=== PATIENT | male | born 1975 | race Caucasian/White ===

== ENCOUNTER 2023-09-24 09:08 | Inpatient (IN) ==
--- NOTE | 2023-09-24 09:51 | Emergency Department Note ---
Impression & Plan Headache, Visual changes, Diarrhea, Occipital neuralgia ED Provider Note ED Provider Note NAME: SHAYNA MADRID AGE:48 SEX: Male : 1975 ARRIVES VIA: private vehicle INFORMANT: Patient ED PROVIDER(s): Margi Robb DO CHIEF COMPLAINT: atypical headache HPI: This is a 48-year-old male presents emerged from due to concern for worsening left posterior headache. Patient was seen and evaluated here 2 weeks ago and diagnosed with Carmona's palsy. He states he was started on a steroid. He states no labs or imaging were performed at that time. He states in the interim he has had mild improvement of the left-sided facial droop although not complete resolution. He did complete a wee of prednisone during that time. He states he also went to [place] in the interim and upon return developed diarrhea. No blood with bowel movements. He states 1 week ago he had a syncopal event at home in the bathroom. He states prior to the onset of the left facial droop and diagnosis of Carmona's he had began having atypical left-sided headaches. Patient does have a history of migraines which she describes as a pain that starts in the neck and comes up over then to his forehead. He states he does typically use OTC meds but also has sumatriptan for refractory symptoms. He states this pain feels different as sharp, lancinating, and he is difficulty finding a comfortable position. He states that has disrupted his sleep additionally. He denies fevers or chills. He denies any extremity weakness or paresthesias. He has noticed intermittent changes to vision including light sensitivity and noise sensitivity. No nausea or vomiting. PAST MEDICAL HISTORY:See Below PAST SURGICAL HISTORY:See Below FAMILY HISTORY:See Below SOCIAL HISTORY:See Below HOME MEDICATIONS:See Below ALLERGIES:See Below VITALS:See Below PHYSICAL EXAMINATION: GENERAL: alert, well appearing, well nourished, no distress, non-toxic EYE EXAM: normal conjunctiva, PERRL and EOM's grossly intact EARS: TMs clear bilaterally without erythema or effusion OROPHARYNX: no exudate, no erythema, lips, buccal mucosa, and tongue normal and mucous membranes are moist NECK: supple, no nuchal rigidity, no adenopathy, non-tender, pain with palpation at left lateral occipital area/nuchal ridge, FROM LUNGS: Clear to auscultation. Normal chest wall mechanics, no w/r/r HEART: no murmurs, S1 normal and S2 normal ABDOMEN: abdomen soft, non-tender, normo-active bowel sounds, no masses, no rebound or guarding. BACK: Back is symmetrical on inspection and there is no deformity, no midline tenderness, no CVA tenderness. SKIN: no rashes, petechiae, orbruising UPPER EXTREMITIES: upper extremities are grossly normal. FROM, nml pulses b/l. LOWER EXTREMITIES: No pitting edema. FROM, nml pulses b/l. NEURO EXAM: Normal sensorium, cranial nerves II-XII grossly intact, normal speech, no facial droop,nogross weakness of arms, no gross weakness of legs. Gross sensation intact. Negative pronator drift. Normal finger-nose. Normal [id number]. No ataxia. Vital Signs: reviewed and remarkable Differential Diagnosis: headache, tension headache, cluster headache, migraine, subarachnoid hemorrhage, meningitis, mass, central venous thrombus, concussion, trauma and epidural/subdural hemorrhage. MEDICAL DECISION MAKING: Patient has no contributory family history. Patient was first seen and observation began at 0815 and was necessary in order to evaluate symptoms and rule out acute intracranial pathology such as stroke or dissection. Upon re- evaluation, 9 hours of observation revealed that the patient would require admission. Discharge from observation at 1813. This is a 48-year-old male presents with 2 weeks of left posterior headache different from prior tension headaches and migraine headaches. Recent diagnosis of Carmona's palsy which does seem to be improving. He was afebrile and hemodynamically stable. All he does still have facial droop and slight lid lag, he otherwise had a nonfocal neuroexam. Labs drawn and sent, IV established, patient sent for CT/CTA, and was monitored on telemetry. He was given several liters of IV fluids due to concern for coming dehydration and recent diarrhea after travel to [place]. Patient given multiple medications over the course of many hours including IV Tylenol, IV Toradol, IV magnesium, gabapentin, Robaxin, IV Pepcid, IV Zofran, and IV Depacon. Despite medications, patient with mild decrease in frequency however no improvement in severity of symptoms and concern to go home and sleep. We discussed options for continued treatment and discharge versus continued treatment as an inpatient. After time spent in discussion with he and his significant other bedside, they feel uncomfortable going home at this time due to persistent pain. Case discussed with the hospitalist team for additional evaluation and management. Consultation(s): 1539: Discussed with Dr. Valdivia, neurology. Discussed recent history, presentation, medications thus far, and evaluation in the ER. Additional recommendations for further medications made. 1812: Discussed with Dr. Pringle, [place] hospitalist team, for additional evaluation. ER Treatment Provided: See below Diagnostics Interpreted By Me: -Cardiac Monitoring: An order was placed for continuous cardiac monitoring. The monitor shows a rate of 98 with normal sinus rhythm. -Laboratory studies: As stated above and show below. -Imaging studies: CT head: no ICH Triage Nursing Note Reviewed Prior/Outside Records Reviewed Past Med/Surg History Problem List Occipital neuralgia (Acute) Diarrhea (Acute) Visual changes (Acute) Headache (Acute) Carmona's palsy (Acute) Encounter for pre-operative examination Degeneration of cervical intervertebral disc Screening for colon cancer Current use of proton pump inhibitor Sebaceous cyst Abscess of skin of left shoulder Filiform wart Skin lesion Hyperlipidemia (Acute) Rib pain on left side Health care maintenance (Acute) Migraine Cervical radiculopathy Anxiety HTN (hypertension) Medical History History of hepatitis A ~20 yrs ago History of COVID-19 2020- no hosp; resolved Sleep apnea no device Surgical History Hx of sinus surgery septal deviation S/P inguinal hernia repair S/P LASIK surgery Family History Family/Other Anxiety Depression Father Hypertension Cancer Denies family history of Ovarian cancer Prostate cancer Myocardial infarction Breast cancer Lung cancer Colorectal cancer Social History Smoking Status: Former smoker Tobacco Type: Cigarettes Age Quit Using Tobacco: 38; Second Hand Exposure: No; Do You Dip or Chew Tobacco: No; Hx Alcohol Use: Yes Alcohol type: beer and hard liquor Alcohol Intake Frequency Comment: On weekends Hx Substance Use: No Preferred Language: Greenlandic Communication Ability: Effective Visual Impairment: No Limitations Hearing Ability: Normal Consultants Intern Required: No Beliefs That Will Affect Care: None marital status: Current Living Situation: Spouse current occupational status: employed current occupation: law enforcement How many Children do You have: 3 Feels Safe at Home: Yes during the past year weight has: remained stable Seatbelt Use: always Assistive Devices: None Allergies Allergies Allergy/AdvReac Type Severity Reaction Status Date / Time prochlorperazine AdvReac Severe ANXIETY Verified 09/24/23 08:14 Home Meds Home Medications Medication Instructions Recorded Confirmed omeprazole 20 mg capsule,delayed 20 mg PO DAILY 02/26/23 09/24/23 release cyclobenzaprine 10 mg tablet 10 mg PO HS PRN neck pain 09/24/23 09/24/23 diltiazem HCl 240 mg 240 mg PO DAILY 09/24/23 09/24/23 capsule,extended release 24 hr, controlled escitalopram oxalate 10 mg tablet 15 mg PO DAILY 09/24/23 09/24/23 nystatin 100,000 unit/gram topical 1 applic topical BID PRN Other 09/24/23 09/24/23 cream Previous Rx's Medication Instructions Recorded sumatriptan succinate 100 mg 100 mg PO Q2H PRN migraine 12/28/22 tablet (Imitrex) headache #10 tabs valacyclovir 500 mg tablet 500 mg PO DAILY PRN history of 09/14/23 herpes genitalis #30 tabs telmisartan 80 mg tablet 80 mg PO DAILY #30 tabs 09/17/23 gabapentin 300 mg capsule 300 mg PO BID #60 caps 09/25/23 Results & Data (ED) Vital Signs Vital Signs - 24 hr 09/24/23 19:41 09/24/23 19:42 09/24/23 19:51 Pulse Rate 106 H 101 H Pulse Rate from SpO2 Sensor 107 H 101 H Respiratory Rate 20 17 Blood Pressure 161/85 H Blood Pressure Mean 127 Pulse Oximetry 100 99 Oxygen Delivery Method Room Air Room Air 09/24/23 20:01 09/24/23 20:27 09/24/23 20:30 Pulse Rate 105 H 103 H Pulse Rate from SpO2 Sensor 107 H 101 H Respiratory Rate 21 16 Blood Pressure 152/85 H Blood Pressure Mean 107 Pulse Oximetry 100 100 Oxygen Delivery Method Room Air Room Air 09/24/23 20:30 09/24/23 20:30 Pulse Rate Pulse Rate from SpO2 Sensor Respiratory Rate Blood Pressure 137/94 137/94 Blood Pressure Mean 101 101 Pulse Oximetry Oxygen Delivery Method Laboratory Data 09/25/23 05:23 09/25/23 05:23 Lab Results 09/24/23 Range/Units 10:27 WBC 19.80 H (4.8-10.8) K/ul RBC 5.50 (4.70-6.10) M/uL Hgb 17.0 (14.0-18.0) g/dl Hct 49.9 (42.0-52.0) % MCV 90.7 (80.0-100.0) fL MCH 30.9 (25.0-34.0) pg MCHC 34.1 (32.0-36.0) g/dL RDW Std Deviation 46.4 H (36.4-46.3) fL RDW Coeff of Anamika 13.9 (11.5-14.5) % Plt Count 217 (130-400) K/uL MPV 10.1 (9.4-12.4) fL Immature Gran % (Auto) 0.4 % Neut % (Auto) 91.4 % Lymph % (Auto) 3.1 % Lamb % (Auto) 3.9 % Eos % (Auto) 1.0 % Baso % (Auto) 0.2 % Neut # (Auto) 18.11 H (1.40-6.50) K/uL Lymph # (Auto) 0.61 L (1.20-3.40) K/uL Lamb # (Auto) 0.77 H (0.11-0.59) K/uL Eos # (Auto) 0.19 (0.00-0.50) K/uL Baso # (Auto) 0.04 (0.00-0.20) K/uL Immature Gran # (Auto) 0.08 (0.01-0.20) K/uL Sodium 140 (136-145) mmol/L Potassium 4.1 (3.5-5.1) mmol/L Chloride 104 (98-107) mmol/L Carbon Dioxide 26 (21-32) mmol/L Anion Gap 10 (3-11) BUN 19 (6-23) mg/dl Creatinine 0.93 (0.6-1.4) mg/dl Est Cr Clr Drug Dosing 113.5 ml/min Est GFR ( Amer) 111.3 ml/min Est GFR (Non-Af Amer) 96.1 ml/min BUN/Creatinine Ratio 20.4 H (10-20) Glucose 101 H (70-99(Fasting)) mg/dl Calcium 9.4 (8.6-10.3) mg/dl Magnesium 1.9 (1.7-2.4) mg/dl Total Bilirubin 1.4 H (0.2-1.0) mg/dl AST 17 (13-39) U/L ALT 15 (7-52) U/L Alkaline Phosphatase 56 (34-104) U/L Total Protein 7.3 (6.0-8.3) gm/dl Albumin 4.4 (3.4-5.0) gm/dl Globulin 2.9 (2.5-4.0) gm/dl Albumin/Globulin Ratio 1.5 (0.9-2) Lipase 11 (11-82) U/L Procalcitonin 0.11 (0-0.5) ng/ml TSH 0.734 (0.300-4.500) uIu/ml Anaplasma Smear See Comment Babesia Smear See Comment Lyme Disease Screen Negative (Negative) Administered Medications Discontinued Medications Diltiazem HCl (Diltiazem Hcl 240 Mg Capcr) 240 mg PO DAILY ERIKA Stop: 10/25/23 08:59 Last Admin: 09/25/23 08:19 Dose: 240 mg Documented By: WINDY Diphenhydramine HCl (Diphenhydramine 50 Mg/Ml Vial) 25 mg IV NOW STA Stop: 09/24/23 23:24 Last Admin: 09/24/23 23:57 Dose: 25 mg Documented By: NEHEMIAS Enoxaparin Sodium (Enoxaparin Inj 40 Mg/0.4 Ml Syr) 40 mg SQ Q24H ERIKA Stop: 10/25/23 05:59 Last Admin: 09/25/23 06:08 Dose: 40 mg Documented By: SARAH Escitalopram Oxalate (Escitalopram Oxalate 10 Mg Tab) 15 mg PO DAILY ERIKA Stop: 10/25/23 08:59 Last Admin: 09/25/23 08:19 Dose: 15 mg Documented By: WINDY Gabapentin (Gabapentin 100 Mg Cap) 100 mg PO NOW STA Stop: 09/24/23 10:48 Last Admin: 09/24/23 11:07 Dose: 100 mg Documented By: KYUNG Gabapentin (Gabapentin 100 Mg Cap) 200 mg PO NOW STA Stop: 09/24/23 15:52 Last Admin: 09/24/23 16:57 Dose: 200 mg Documented By: DIANNA Gabapentin (Gabapentin 100 Mg Cap) 100 mg PO BID ERIKA Stop: 10/24/23 23:22 Last Admin: 09/25/23 08:20 Dose: 100 mg Documented By: Admin: 09/24/23 23:57 Dose: 100 mg Documented By: NEHEMIAS Gabapentin (Gabapentin 100 Mg Cap) 200 mg PO ONE ONE Stop: 09/25/23 10:46 Last Admin: 09/25/23 11:05 Dose: 200 mg Documented By: WINDY Gadobutrol (Gadobutrol 65ml Vial) 10 ml IV ONCE ONE Stop: 09/25/23 13:26 Last Admin: 09/25/23 13:25 Dose: 10 ml Documented By: GERALDINE Sodium Chloride (Nss) 1,000 mls @ 999 mls/hr IV .Q1H1M ONE Stop: 09/24/23 10:43 Last Infusion: 09/24/23 11:34 Dose: Infused Documented By: Admin: 09/24/23 10:29 Dose: 999 mls/hr Documented By: ALS Acetaminophen (Ofirmev) 1,000 mg in 100 mls @ 400 mls/hr IV NOW STA Stop: 09/24/23 09:57 Last Infusion: 09/24/23 10:36 Dose: Infused Documented By: Admin: 09/24/23 10:21 Dose: 400 mls/hr Documented By: ALS Famotidine (Pepcid 20mg Iv Push) 20 mg in 5 mls @ 2.5 mls/min IV NOW STA Stop: 09/24/23 09:44 Last Admin: 09/24/23 10:29 Dose: 2.5 mls/min Documented By: ALS Sodium Chloride (Nss) 1,000 mls @ 999 mls/hr IV .Q1H1M ONE Stop: 09/24/23 11:46 Last Infusion: 09/24/23 12:19 Dose: Infused Documented By: Admin: 09/24/23 11:08 Dose: 999 mls/hr Documented By: ALS Magnesium Sulfate/Dextrose (Magnesium Sulfate / D5w) 1 gm in 100 mls @ 100 mls/hr IV NOW STA Stop: 09/24/23 11:46 Last Infusion: 09/24/23 12:08 Dose: Infused Documented By: Admin: 09/24/23 11:07 Dose: 100 mls/hr Documented By: KYUNG Valproic Acid 500 mg/ Dextrose 55 mls @ 55 mls/hr IV NOW STA Stop: 09/24/23 16:50 Last Infusion: 09/24/23 18:01 Dose: Infused Documented By: Admin: 09/24/23 16:57 Dose: 55 mls/hr Documented By: DIANNA Lactated Ringer's (Lr) 1,000 mls @ 80 mls/hr IV .[id number] ERIKA Stop: 10/24/23 22:59 Last Infusion: 09/25/23 12:03 Dose: Infused Documented By: Admin: 09/25/23 00:45 Dose: 80 mls/hr Documented By: Infusion: 09/25/23 00:45 Dose: Infused Documented By: Admin: 09/24/23 23:13 Dose: 80 mls/hr Documented By: NEHEMIAS Lorazepam 1 mg/ Syringe 1 mls @ 2 mls/min IV Q30M PRN PRN Reason: MRI: Anxiety/Agitation Stop: 10/25/23 11:04 Last Admin: 09/25/23 11:55 Dose: 2 mls/min Documented By: WINDY Ioversol (Optiray 320 125ml) 112 ml IV ONCE ONE Stop: 09/24/23 11:16 Last Admin: 09/24/23 11:15 Dose: 112 ml Documented By: VERÓNICA Ketorolac Tromethamine (Ketorolac Tromethamine 15 Mg/Ml Vial) 10 mg IV NOW ONE Stop: 09/24/23 12:36 Last Admin: 09/24/23 12:39 Dose: 10 mg Documented By: ROZ Ketorolac Tromethamine (Ketorolac Tromethamine 15 Mg/Ml Vial) 10 mg IV NOW ONE Stop: 09/24/23 17:34 Last Admin: 09/24/23 17:40 Dose: 10 mg Documented By: PAULY Ketorolac Tromethamine (Ketorolac Tromethamine 10 Mg Tablet) 10 mg PO NOW STA Stop: 09/24/23 21:23 Last Admin: 09/24/23 21:29 Dose: 10 mg Documented By: DIANNA Losartan Potassium (Losartan Potassium 50 Mg Tab) 100 mg PO DAILY ERIKA Stop: 10/25/23 08:59 Last Admin: 09/25/23 08:19 Dose: 100 mg Documented By: WINDY Methocarbamol (Methocarbamol 500 Mg Tablet) 500 mg PO NOW STA Stop: 09/24/23 13:50 Last Admin: 09/24/23 14:08 Dose: 500 mg Documented By: SUZANNA Methocarbamol (Methocarbamol 500 Mg Tablet) 250 mg PO NOW STA Stop: 09/24/23 15:54 Last Admin: 09/24/23 16:56 Dose: 250 mg Documented By: DIANNA Ondansetron HCl (Ondansetron Inj 2 Mg/Ml 2 Ml Vial) 4 mg IV NOW STA Stop: 09/24/23 09:44 Last Admin: 09/24/23 10:21 Dose: 4 mg Documented By: KYUNG Oxycodone HCl (Oxycodone Hcl Ir 5 Mg Tab (Immediate Release)) 5 mg PO HS PRN PRN Reason: Pain Stop: 10/08/23 23:22 Last Admin: 09/25/23 05:49 Dose: 5 mg Documented By: SARAH Pantoprazole Sodium (Pantoprazole 40 Mg Tab) 40 mg PO NOW STA Stop: 09/24/23 22:13 Last Admin: 09/24/23 23:13 Dose: 40 mg Documented By: NEHEMIAS Pantoprazole Sodium (Pantoprazole 40 Mg Tab) 40 mg PO DAILY ERIKA Stop: 10/25/23 08:59 Last Admin: 09/25/23 08:20 Dose: 40 mg Documented By: WINDY Sumatriptan Succinate (Sumatriptan Succinate 100 Mg Tab) 100 mg PO Q2H PRN PRN Reason: migraine headache Stop: 10/24/23 23:22 Last Admin: 09/25/23 14:34 Dose: 100 mg Documented By: WINDY Imaging Data Radiologist's Impression: Head CT 09/24/23 09:[address] DOSE: HISTORY: left posterior headache, nausea, vision change TECHNIQUE: Multiaxial CT images of the head were performed without the use of intravenous contrast. Automated exposure control was utilized for this study. A dose lowering technique was utilized adhering to the principles of ALARA. Comparison: None. Findings: Partially visualized small retention cyst within the right maxillary sinus. The remaining paranasal sinuses and mastoid air cells are clear. The calvarium and skull base are intact. The ventricles and sulci are within normal limits. There is no mass, hematoma, midline shift, or acute infarct. 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 Impression: No acute intracranial abnormality. ACT 112: Negative or not required by law. Electronically signed by: Renny Wyatt M.D. 09/24/2023 11:37 AM Head CTA 09/24/23 09:43 CT angio head w con CLINICAL HISTORY: 48 years-old Male with left posterior lowe, vision change, nausea. Acute headache COMPARISON STUDY: Head CT of same day TECHNIQUE: Unenhanced following the IV administration of 112 cc of Optiray, CT angiogram of the brain was performed from the skull base to the vertex. Images are reviewed in the axial, sagittal, and coronal planes. 3-D MIPS images are created and assessed. IV contrast was administered without complication. All measurements were obtained according to NASCET criteria. A dose lowering technique was utilized adhering to the principles of ALARA. FINDINGS: CT ANGIOGRAM OF THE BRAIN: The imaged bilateral internal carotid arteries are patent. The bilateral anterior and middle cerebral arteries are also patent. The vertebrobasilar system and posterior cerebral arteries are widely patent. There is no aneurysm, high-grade stenosis, or proximal branch occlusion identified. Dural sinuses appear patent. Polypoid mucosal thickening of the right maxillary sinus incidentally noted. Periapical cystic changes noted involving a right maxillary molar, partially imaged. IMPRESSION: Unremarkable CTA of the head. ACT 112: Negative or not required by law. The above report was generated using voice recognition software. It may contain grammatical, syntax or spelling errors. Electronically signed by: Jabier Cohen M.D. 09/24/2023 11:50 AM Neck CTA 09/24/23 09:43 CT ANGIOGRAM OF THE NECK CLINICAL HISTORY: Headache. Nausea. Visual changes. COMPARISON STUDY: No priors. TECHNIQUE: Following the IV administration of 112 of Optiray 320, CT angiogram of the neck was performed from the aortic arch to the skull base. Images are reviewed in the axial, sagittal, and coronal planes. 3-D MIPS images are created and assessed. IV contrast was administered without complication. All measurements were calculated based on NASCET criteria. A dose lowering technique was utilized adhering to the principles of ALARA. CT DOSE: 1222.25 mGy.cm FINDINGS: Thoracic aorta: Visualized portions of the thoracic aorta are normal in caliber. The aortic arch demonstrates standard 3-vessel anatomy. Right carotid arterial system: The right common carotid artery is widely patent, as are the right internal and external carotid arteries. Left carotid arterial system: The left common carotid artery is widely patent, as are the left internal and external carotid arteries. Vertebral arteries: Widely patent bilaterally and codominant. Subclavian arteries: Widely patent bilaterally. Intracranial vasculature: The visualized intracranial vessels at the skull base are patent. Jugular veins: Patent bilaterally. Brain parenchyma: The visualized brain parenchyma the skull base is within normal limits. Lung apices: Partially visualized upper lobe lung parenchyma appears clear. Soft tissues: The visualized pharyngeal soft tissues are normal in appearance noting angiographic phase technique. The oropharyngeal airway appears widely patent. The salivary and thyroid glands are normal in appearance. No cervical lymphadenopathy is seen. Skeletal structures: The visualized calvarium at the skull base appears intact. The imaged cervical spine appears intact. There is marked disc space narrowing, endplate sclerosis, and a posterior discussed by complex at C5-C6. Sinuses and mastoids: There is a large periapical lucency involving the 2 most posterior right maxillary molars. This may involve the right maxillary antrum. There is trace mucosal thickening and a 2.1 cm retention cyst in the right maxillary antrum. The mastoid air cells are well pneumatized. IMPRESSION: Unremarkable CT angiogram of the neck. ACT 112: Negative or not required by law. Electronically signed by: Juan Antonio Nicolas M.D. 09/24/2023 11:36 AM Discharge Plan Visit Data Chief Complaint: Head Pain Stated Complaint: PAIN IN BACK OF HEAD WORSE/CARMONA'S PALSY WORSE ED Provider: Margi Robb Discharge Problem: Headache, Visual changes, Diarrhea, Occipital neuralgia Patient Disposition: Home - Self-Care Condition: Good Discharge Instructions Interventions: ED Discharge Assessment Last Done: 09/24/23 23:24
[2023-09-24] MEDS: ACETAMINOPHEN 1,000 MG/100 ML VIAL IV STA (10:21)
[2023-09-24] MEDS: ONDANSETRON INJ 2 MG/ML 2 ML VIAL IV STA (10:21)
[2023-09-24] MEDS: FAMOTIDINE 20MG IV PUSH 20 MG/5 ML SYR IV STA (10:29)
[2023-09-24] MEDS: SODIUM CHLORIDE 0.9% 1,000 ML IV ONE ×2 (10:29→11:08)
[2023-09-24 10:44] LABS: Hematocrit (blood only) 49.9 % (42.0-52.0); Mean Corpuscular Hemoglobin 30.9 pg (25.0-34.0); Mean Corpuscular Hgb Conc 34.1 g/dL (32.0-36.0); Mean Corpuscular Volume 90.7 fL (80.0-100.0); Mean Platelet Volume 10.1 fL (9.4-12.4); Platelet Count 217 K/uL (130-400); RDW Coefficient of Variation 13.9 % (11.5-14.5); RDW Standard Deviation 46.4 fL (36.4-46.3)
[2023-09-24 10:59] LABS: Albumin Level 4.4 gm/dl (3.4-5.0); BUN Creatinine Ratio 20.4 (10-20); Calcium 9.4 mg/dl (8.6-10.3); Creatinine Clr Calc Pharmacy 113.5 ml/min; Est GFR (African American) 111.3 ml/min; Est GFR (Non-African American) 96.1 ml/min; Magnesium 1.9 mg/dl (1.7-2.4); Potassium 4.1 mmol/L (3.5-5.1)
[2023-09-24] MEDS: MAGNESIUM SULFATE / D5W 1 GM/100 ML BAG IV STA (11:07)
[2023-09-24] MEDS: GABAPENTIN 100 MG CAP PO STA ×2 (11:07→16:57)
[2023-09-24 11:12] LABS: Albumin Globulin Ratio 1.5 (0.9-2); Basophils # (auto) 0.04 K/uL (0.00-0.20); Basophils % (auto) 0.2 %; Bilirubin,Total 1.4 mg/dl (0.2-1.0); Eosinophils # (auto) 0.19 K/uL (0.00-0.50); Globulin 2.9 gm/dl (2.5-4.0); Immature Granulocytes # (auto) 0.08 K/uL (0.01-0.20); Immature Granulocytes % (auto) 0.4 %; Lymphocytes # (auto) 0.61 K/uL (1.20-3.40); Lymphocytes % (auto) 3.1 %; Monocytes # (auto) 0.77 K/uL (0.11-0.59); Monocytes % (auto) 3.9 %; Neutrophils # (auto) 18.11 K/uL (1.40-6.50); Neutrophils % (auto) 91.4 %; Total Protein 7.3 gm/dl (6.0-8.3)
[2023-09-24 11:13] LABS: Thyroid Stimulating Hormone 0.734 uIu/ml (0.300-4.500)
[2023-09-24] MEDS: OPTIRAY 320 125ml IV ONE (11:15)
--- NOTE | 2023-09-24 11:38 | CT Scan Report ---
CT ANGIOGRAM OF THE NECK CLINICAL HISTORY: Headache. Nausea. Visual changes. COMPARISON STUDY: No priors. TECHNIQUE: Following the IV administration of 112 of Optiray 320, CT angiogram of the neck was perfor med from the aortic arch to the skull base. Images are reviewed in the axial, sagittal, and coronal p lanes. 3-D MIPS images are created and assessed. IV contrast was administered without complication. A ll measurements were calculated based on NASCET criteria. A dose lowering technique was utilized adh ering to the principles of ALARA. CT DOSE: 1222.25 mGy.cm FINDINGS: Thoracic aorta: Visualized portions of the thoracic aorta are normal in caliber. The aortic arch demo nstrates standard 3-vessel anatomy. Right carotid arterial system: The right common carotid artery is widely patent, as are the right int ernal and external carotid arteries. Left carotid arterial system: The left common carotid artery is widely patent, as are the left leadership program internship al and external carotid arteries. Vertebral arteries: Widely patent bilaterally and codominant. Subclavian arteries: Widely patent bilaterally. Intracranial vasculature: The visualized intracranial vessels at the skull base are patent. Jugular veins: Patent bilaterally. Brain parenchyma: The visualized brain parenchyma the skull base is within normal limits. Lung apices: Partially visualized upper lobe lung parenchyma appears clear. Soft tissues: The visualized pharyngeal soft tissues are normal in appearance noting angiographic pha se technique. The oropharyngeal airway appears widely patent. The salivary and thyroid glands are nor mal in appearance. No cervical lymphadenopathy is seen. Skeletal structures: The visualized calvarium at the skull base appears intact. The imaged cervical s pine appears intact. There is marked disc space narrowing, endplate sclerosis, and a posterior discus sed by complex at C5-C6. Sinuses and mastoids: There is a large periapical lucency involving the 2 most posterior right maxill deepak molars. This may involve the right maxillary antrum. There is trace mucosal thickening and a 2.1 cm retention cyst in the right maxillary antrum. The mastoid air cells are well pneumatized. IMPRESSION: Unremarkable CT angiogram of the neck. ACT 112: Negative or not required by law. Electronically signed by: Juan Antonio Nicolas M.D. 09/24/2023 11:36 AM
--- NOTE | 2023-09-24 11:38 | CT Scan Report ---
HEAD CT NONCONTRAST CT DOSE: HISTORY: left posterior headache, nausea, vision change TECHNIQUE: Multiaxial CT images of the head were performed without the use of intravenous contrast. A utomated exposure control was utilized for this study. A dose lowering technique was utilized adheri ng to the principles of ALARA. Comparison: None. Findings: Partially visualized small retention cyst within the right maxillary sinus. The remaining p aranasal sinuses and mastoid air cells are clear. The calvarium and skull base are intact. The ventri cles and sulci are within normal limits. There is no mass, hematoma, midline shift, or acute infarct. 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 Impression: No acute intracranial abnormality. ACT 112: Negative or not required by law. Electronically signed by: Renny Wyatt M.D. 09/24/2023 11:37 AM
--- NOTE | 2023-09-24 11:52 | CT Scan Report ---
CT angio head w con CLINICAL HISTORY: 48 years-old Male with left posterior lowe, vision change, nausea. Acute headache COMPARISON STUDY: Head CT of same day TECHNIQUE: Unenhanced following the IV administration of 112 cc of Optiray, CT angiogram of the brain was performed from the skull base to the vertex. Images are reviewed in the axial, sagittal, and cor onal planes. 3-D MIPS images are created and assessed. IV contrast was administered without complicat ion. All measurements were obtained according to NASCET criteria. A dose lowering technique was utili zed adhering to the principles of ALARA. FINDINGS: CT ANGIOGRAM OF THE BRAIN: The imaged bilateral internal carotid arteries are patent. The bilateral anterior and middle cerebral arteries are also patent. The vertebrobasilar system and posterior cerebral arteries are widely barroso nt. There is no aneurysm, high-grade stenosis, or proximal branch occlusion identified. Dural sinuses appear patent. Polypoid mucosal thickening of the right maxillary sinus incidentally noted. Periapic al cystic changes noted involving a right maxillary molar, partially imaged. IMPRESSION: Unremarkable CTA of the head. ACT 112: Negative or not required by law. The above report was generated using voice recognition software. It may contain grammatical, syntax o r spelling errors. Electronically signed by: Jabier Cohen M.D. 09/24/2023 11:50 AM
[2023-09-24] MEDS: KETOROLAC TROMETHAMINE 15 MG/ML VIAL IV ONE ×2 (12:39→17:40)
[2023-09-24] MEDS: METHOCARBAMOL 500 MG TABLET PO STA ×2 (14:08→16:56)
[2023-09-24] MEDS: VALPROATE SOD 500 MG in DEXTROSE 5% 50 ML IV STA (16:57)
--- NOTE | 2023-09-24 18:30 | History & Physical Report ---
Date of Service September 24, 2023 Assessment & Plan (1) Occipital neuralgia: (2) Migraine: (3) Carmona's palsy: (4) Cervical radiculopathy: (5) Degeneration of cervical intervertebral disc: (6) Diarrhea: (7) HTN (hypertension): Plan Patient is a 48-year-old male w/ PMHx of migraines, cervical radiculopathy/degeneration of cerv intervertebral disc, recent Carmona's palsy Dx (still resolving), new onset mild diarrhea, HTN, acid reflux, genital herpes, who presented due to concern for worsening left posterior headache of 2-wk Hx (2 days prior to Carmona's palsy Dx). 1) Left occipital neuralgia - 2 wk history, worsening symptoms - Oxycodone, 5 mg, PO, QHS, PRN - valproic acid, 500 mg, IV, QAM and MgSO4, 1 g, IV, QAM for occipital neuralgia - discontinued Toradol, 10 mg, IV, q6hrs, PRN for pain due to potential infectious etiology - manage with Zofran and diphenhydramine, consider MgSO4 and/or 2nd dose of valproic acid in AM - holding off on pain-meds w/ anti-pyretic component to see pt spikes fever - Neurology consulted, appreciate recommendations (consideration of occipital nerve block?) 2) Migraine/Hx of migraines - Hx of migraines --> no prophylaxis, sumatriptan for breakthrough migraines; sumatriptan - given Toradol, magnesium sulfate, valproic acid, Zofran in ED 3) Carmona's palsy, resolving - Dx of Carmona's palsy during last ED admission (09/11/23), prednisone, 60 mg, PO, daily, 7-day course - residual left ptosis, left facial droop, left facial muscle involvement - Lyme panel negative 4) Cervical radiculopathy/degeneration of cervical intervertebral disc - CT-Head: Partially visualized small retention cyst within the right maxillary sinus. There is no mass, hematoma, midline shift, or acute infarct--no signs of acute abnormality. 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 - CTA-head, neck: Unremarkable CT-Head. The imaged cervical spine appears intact. There is marked disc space narrowing, endplate sclerosis, and a "posterior discussed by complex" at C5-C6. 5) Diarrhea - mild, onset the day of admission; and second couple who traveled also w/ diarrhea ; all traveled to , returned on September 21 - monitor, daily BMP - PCR stool panel ordered 6) Leukocytosis - WBC, 19.8 (0.4% immature granulocytes) in context of recent 7 day course of prednisone - temp, 37.9 after Toradol and Tylenol --> potential fever? (holding Tylenol now) - met SIRS criteria: HR, 111; WBC, 19.8 --> blood cultures ordered due to diarr heal symptoms + SIRS criteria - no respiratory, urinary, cardiac Sx; no wounds; only 0.4% immature granulocytes argues against infectious cause - monitor w/ daily CBC w/ diff 6) HTN - continue telmisartan, diltiazem Code status: Full Disposition: Med-Surg DVT Prophylaxis: Lovenox, 40 mg, SQ, daily FENGI: Regular diet, no maintenance fluids History of Present Illness Chief Complaint: left occipital pain nausea, dizziness, mild diarrhea Primary Care Provider: Tien Wheeler MD This is a 48-year-old male presents emerged from due to concern for worsening left posterior headache. Patient was seen, evaluated here 2 weeks ago, diag nosed with Carmona's palsy, received 7-day course of methylprednisolone. He states no labs or imaging were performed at that time. He's had mild improvement of the left-sided facial droop since finishing steroid course. He states he also went to [place], got back September 21, had a few episodes of diarrhea this morning, starting at 3 am, w/o blood. He states 1 week ago he had a syncopal event at home in the bathroom. He states prior to the onset of the left facial droop and diagnosis of Carmona's he had began having atypical left-sided headaches, consisting of dull-sided left pain with intermittent sharp stabbing pain at most every 45 sec. Patient does have a history of migraines which she describes as a pain that starts in the neck and comes up over then to his forehead. He states he does typically use OTC meds, has sumatriptan for refractory symptoms, but has not used it for months; states some gym exercises have decreased migraine frequency. He states this pain feels different as sharp, lancinating, and he is difficulty finding a comfortable position, and has disrupted his sleep additionally. He denies fevers or chills. He denies any extremity weakness or paresthesias. He has noticed light sensitivity and noise sensitivity but no vision changes--i.e. no blurriness, double vision. Patient has felt nauseous but has not vomited. Allergies Allergy/AdvReac Type Severity Reaction Status Date / Time prochlorperazine AdvReac Severe ANXIETY Verified 09/24/23 08:14 Home Medications Medication Instructions Recorded Confirmed Type sumatriptan succinate 100 mg 100 mg PO Q2H PRN migraine 12/28/22 09/24/23 Rx tablet (Imitrex) headache #10 tabs omeprazole 20 mg capsule,delayed 20 mg PO DAILY 02/26/23 09/24/23 History release valacyclovir 500 mg tablet 500 mg PO DAILY PRN history of 09/14/23 09/24/23 Rx herpes genitalis #30 tabs telmisartan 80 mg tablet 80 mg PO DAILY #30 tabs 09/17/23 09/24/23 Rx cyclobenzaprine 10 mg tablet 10 mg PO HS PRN neck pain 09/24/23 09/24/23 History diltiazem HCl 240 mg 240 mg PO DAILY 09/24/23 09/24/23 History capsule,extended release 24 hr, controlled escitalopram oxalate 10 mg tablet 15 mg PO DAILY 09/24/23 09/24/23 History nystatin 100,000 unit/gram topical 1 applic topical BID PRN Other 09/24/23 09/24/23 History cream Past Med/Surg History Problem List (Updated 09/24/23 @ 18:15 by Margi Robb DO) Occipital neuralgia (Acute) Diarrhea (Acute) Visual changes (Acute) Headache (Acute) Carmona's palsy (Acute) Encounter for pre-operative examination Degeneration of cervical intervertebral disc Screening for colon cancer Current use of proton pump inhibitor Sebaceous cyst Abscess of skin of left shoulder Filiform wart Skin lesion Hyperlipidemia (Acute) Rib pain on left side Health care maintenance (Acute) Migraine Cervical radiculopathy Anxiety HTN (hypertension) Medical History History of hepatitis A ~20 yrs ago History of COVID-19 2020- no hosp; resolved Sleep apnea no device Surgical History Hx of sinus surgery septal deviation S/P inguinal hernia repair S/P LASIK surgery Family History Family/Other Anxiety Depression Father Hypertension Cancer Denies family history of Ovarian cancer Prostate cancer Myocardial infarction Breast cancer Lung cancer Colorectal cancer Social History Smoking Status: Current every day smoker Tobacco Type: Cigarettes Second Hand Exposure: No; Do You Dip or Chew Tobacco: No; Hx Alcohol Use: Yes Alcohol type: beer and hard liquor Hx Substance Use: No Preferred Language: Tristanian Communication Ability: Effective Visual Impairment: No Limitations Hearing Ability: Normal Social Service Worker Required: No Beliefs That Will Affect Care: None marital status: Current Living Situation: Spouse current occupational status: employed current occupation: law enforcement How many Children do You have: 3 Feels Safe at Home: Yes during the past year weight has: remained stable Seatbelt Use: always Assistive Devices: None Review of Systems Constitutional: no fever, no chills, no fatigue and no insomnia Eyes: as per Subjective / HPI (l. eye has been teary); not seeing flashes Ear, Nose, Mouth, Throat: + tinnitus (ringing in ear before passin g out) and + dizziness (dizziness and nausea periodically all day); no sinus pain/pressure, no dysphagia and no pain with swallowing Respiratory: no chest congestion, no dyspnea and no wheezing Cardiovascular: + lightheadedness and + syncope (during fainting episode in shower in [place]); no chest pain and no palpitations Gastrointestinal: + nausea and + diarrhea/loose stools (go t back from September 21, first case of diarrhea 3 am, September 23); no vomiting Neurologic: + localized weakness (l side of face), + lack of coordination (mildly on day of Audubon palsy presentation) and + headache(s) (3/10 dull pain, 9/10 stabbing pain intermittently in l. occipital area) Physical Exam Constitutional: WD/WN, vitals as above Eyes: normal visual vincent by confrontation, + eyelid abnormality (left ptosis), PERRL, normal accommodation and EOM intact bilaterally; no conjunctival abnormality Respiratory: normal respiratory effort, lungs clear to auscultation Cardiovascular: RRR, no murmur, no edema Gastrointestinal (Abdomen): normal bowel sounds, soft, nontender, no hepatosplenomegaly Neurologic: moves all extremities, + focal motor deficit (left sided face palsy only; no UE or LE motor deficits) and awake Speech / Cognition: normal speech Motor/Sensory: no tremor, normal movement, no pronator drift and no sensory deficit Cranial Nerves: PERRL and normal accommodation; + abnormal facial strength (left sided palsy of entire face: forehead, facial muscles) Coordination: normal [id number] test, normal tntc-to-azim test and normal rapid alternating movements Psychiatric: A+Ox3, euthymic affect Results & Data Results & Data Vital Signs (Past 12 Hours) Vital Signs Temp Pulse Pulse Resp BP BP Pulse Ox 09/24/23 17:04 97 H 18 100 09/24/23 14:36 111 H 09/24/23 13:43 18 135/72 09/24/23 13:05 98 H 18 140/86 98 09/24/23 11:08 18 140/86 99 09/24/23 10:45 93 H 09/24/23 09:12 36.8 C 108 H 20 146/66 H 100 09/24/23 09:08 18 135/78 99 O2 Del Method 09/24/23 17:04 Room Air 09/24/23 14:36 09/24/23 13:43 09/24/23 13:05 Room Air 09/24/23 11:08 Room Air 09/24/23 10:45 09/24/23 09:12 Room Air 09/24/23 09:08 Room Air Diagnostic Findings Head CT 09/24/23 09:[address] DOSE: HISTORY: left posterior headache, nausea, vision change TECHNIQUE: Multiaxial CT images of the head were performed without the use of intravenous contrast. Automated exposure control was utilized for this study. A dose lowering technique was utilized adhering to the principles of ALARA. Comparison: None. Findings: Partially visualized small retention cyst within the right maxillary sinus. The remaining paranasal sinuses and mastoid air cells are clear. The calvarium and skull base are intact. The ventricles and sulci are within normal limits. There is no mass, hematoma, midline shift, or acute infarct. 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 Impression: No acute intracranial abnormality. ACT 112: Negative or not required by law. Electronically signed by: Renny Wyatt M.D. 09/24/2023 11:37 AM Head CTA 09/24/23 09:43 CT angio head w con CLINICAL HISTORY: 48 years-old Male with left posterior lowe, vision change, nausea. Acute headache COMPARISON STUDY: Head CT of same day TECHNIQUE: Unenhanced following the IV administration of 112 cc of Optiray, CT angiogram of the brain was performed from the skull base to the vertex. Images are reviewed in the axial, sagittal, and coronal planes. 3-D MIPS images are created and assessed. IV contrast was administered without complication. All measurements were obtained according to NASCET criteria. A dose lowering technique was utilized adhering to the principles of ALARA. FINDINGS: CT ANGIOGRAM OF THE BRAIN: The imaged bilateral internal carotid arteries are patent. The bilateral anterior and middle cerebral arteries are also patent. The vertebrobasilar system and posterior cerebral arteries are widely patent. There is no aneurysm, high-grade stenosis, or proximal branch occlusion identified. Dural sinuses appear patent. Polypoid mucosal thickening of the right maxillary sinus incidentally noted. Periapical cystic changes noted involving a right maxillary molar, partially imaged. IMPRESSION: Unremarkable CTA of the head. ACT 112: Negative or not required by law. The above report was generated using voice recognition software. It may contain grammatical, syntax or spelling errors. Electronically signed by: Jabier Cohen M.D. 09/24/2023 11:50 AM Neck CTA 09/24/23 09:43 CT ANGIOGRAM OF THE NECK CLINICAL HISTORY: Headache. Nausea. Visual changes. COMPARISON STUDY: No priors. TECHNIQUE: Following the IV administration of 112 of Optiray 320, CT angiogram of the neck was performed from the aortic arch to the skull base. Images are reviewed in the axial, sagittal, and coronal planes. 3-D MIPS images are created and assessed. IV contrast was administered without complication. All measurements were calculated based on NASCET criteria. A dose lowering technique was utilized adhering to the principles of ALARA. CT DOSE: 1222.25 mGy.cm FINDINGS: Thoracic aorta: Visualized portions of the thoracic aorta are normal in caliber. The aortic arch demonstrates standard 3-vessel anatomy. Right carotid arterial system: The right common carotid artery is widely patent, as are the right internal and external carotid arteries. Left carotid arterial system: The left common carotid artery is widely patent, as are the left internal and external carotid arteries. Vertebral arteries: Widely patent bilaterally and codominant. Subclavian arteries: Widely patent bilaterally. Intracranial vasculature: The visualized intracranial vessels at the skull base are patent. Jugular veins: Patent bilaterally. Brain parenchyma: The visualized brain parenchyma the skull base is within normal limits. Lung apices: Partially visualized upper lobe lung parenchyma appears clear. Soft tissues: The visualized pharyngeal soft tissues are normal in appearance noting angiographic phase technique. The oropharyngeal airway appears widely patent. The salivary and thyroid glands are normal in appearance. No cervical lymphadenopathy is seen. Skeletal structures: The visualized calvarium at the skull base appears intact. The imaged cervical spine appears intact. There is marked disc space narrowing, endplate sclerosis, and a posterior discussed by complex at C5-C6. Sinuses and mastoids: There is a large periapical lucency involving the 2 most posterior right maxillary molars. This may involve the right maxillary antrum. There is trace mucosal thickening and a 2.1 cm retention cyst in the right maxillary antrum. The mastoid air cells are well pneumatized. IMPRESSION: Unremarkable CT angiogram of the neck. ACT 112: Negative or not required by law. Electronically signed by: Juan Antonio Nicolas M.D. 09/24/2023 11:36 AM Supervising Physician Co-Signing Physician Notes Patient seen and examined, chart reviewed, case discussed with Dr. Membreno and I agree with the assessment and plan as above except as otherwise noted Labs and images reviewed 48yo M with a recent hx of bells palsy 2 weeks ago who completed steroids x1 week who presents with severe L posterior headache. Was in [place] last week, had a syncopal event with numbness and tingling down both arms. Was out for a brief period of time per family. No tongue biting/incontinence/seizure like activity. Had had some left sided headache since he was dx with Audubon palsy. Does have a hx of migraines, but feels current headache is different than his migraine pain. Headache is sharp intermittent with a stabbing quality. Starts as a dull pain, but then has stabbing quality intermittently that goes to a 9/10 before improving. Additional feels weak in his fingertips bilaterally, and week in the proximal arms when trying to reach behind his neck. No vision change. No photo/phonosenstivity. No nuchal rigidity. No fever/chills. Did have some diarrhea when in [place] but lowe simproved this afternoon, and has no abdominal pain/tenderness Case was reviewed w/ Neuro who are consulted. Pt recieved gabapentin, toradol, methocarbamol, valproic acid with incomplete improvement in his headache. Will continue Toradol 10mg q6h PRN, gabapentin 100mg BID, oxycodone 5mg BID for breakthrough. Neuro following. If cannot obtain pain control can follow-up with pain management for potential nerve block. Patient has a history of C5 disc disease with bilateral proximal arm weakness and upper extremity numbness/tingling. He had an MRI for this several years ago and had follow-up with Dr. Freeman. Compared with symptoms have been they have actually progressively improved over time, and have had no recent worsening in either strength or sensation. On exam academic assistant strength, elbow flexion, shoulder flexion, shoulder internal/external rotation all 5/5 bilat. Sensation to soft touch intact in hands and arms bilaterally without deficit/asymmetry. Okay to defer repeat MRI on admission. Additionally midline spinal cyst versus palpitations with no pain and neck range of motion is intact without pain. He has no nuchal rigidity or photo/phono sensitivity suggestive of meningitis.
[2023-09-24] MEDS ORDERED: MELATONIN 3 MG TAB PO PRN (19:39)
--- NOTE | 2023-09-24 20:25 | Billing Data ---
Date of Service September 24, 2023 Coding Level of Care Code 45601 INT INP/OBS CARE
[2023-09-24] MEDS: KETOROLAC TROMETHAMINE 10 MG TABLET PO STA (21:29)
[2023-09-24] MEDS: LACTATED RINGER'S 1,000 ML IV SCH (23:13)
[2023-09-24] MEDS: PANTOprazole 40 MG TAB PO STA (23:13)
[2023-09-24] MEDS ORDERED: valACYclovir HCL 500 MG TABLET PO PRN (23:23)
[2023-09-24] MEDS ORDERED: ondansetron HCL 6 MG in DEXTROSE 5% 50 ML IV PRN (23:23)
[2023-09-24] MEDS: diphenhydrAMINE 50 MG/ML VIAL IV STA (23:57)
[2023-09-24] MEDS: GABAPENTIN 100 MG CAP PO SCH (23:57)
[2023-09-25] MEDS: oxyCODONE HCL IR 5 MG TAB (IMMEDIATE RELEASE) PO PRN (05:49)
[2023-09-25] MEDS: ENOXAPARIN INJ 40 MG/0.4 ML SYR SQ SCH (06:08)
[2023-09-25 06:22] LABS: Basophils # (auto) 0.02 K/uL (0.00-0.20); Basophils % (auto) 0.2 %; Eosinophils # (auto) 0.11 K/uL (0.00-0.50); Eosinophils % (auto) 1.2 %; Hematocrit (blood only) 39.6 % (42.0-52.0); Hemoglobin 13.6 g/dl (14.0-18.0); Immature Granulocytes # (auto) 0.07 K/uL (0.01-0.20); Immature Granulocytes % (auto) 0.7 %; Lymphocytes % (auto) 13.6 %; Mean Corpuscular Hemoglobin 31.1 pg (25.0-34.0); Mean Corpuscular Hgb Conc 34.3 g/dL (32.0-36.0); Mean Corpuscular Volume 90.4 fL (80.0-100.0); Mean Platelet Volume 10.4 fL (9.4-12.4); Monocytes # (auto) 0.62 K/uL (0.11-0.59); Monocytes % (auto) 6.5 %; Neutrophils # (auto) 7.41 K/uL (1.40-6.50); Neutrophils % (auto) 77.8 %; Platelet Count 187 K/uL (130-400); RDW Coefficient of Variation 13.9 % (11.5-14.5); RDW Standard Deviation 45.7 fL (36.4-46.3); Red Blood Count 4.38 M/uL (4.70-6.10); White Blood Count 9.53 K/ul (4.8-10.8)
[2023-09-25 06:25] LABS: BUN Creatinine Ratio 15.4 (10-20); Calcium 7.8 mg/dl (8.6-10.3); Creatinine Clr Calc Pharmacy 115.6 ml/min; Est GFR (African American) 114.3 ml/min; Est GFR (Non-African American) 98.6 ml/min; Potassium 3.6 mmol/L (3.5-5.1)
[2023-09-25] MEDS: LOSARTAN POTASSIUM 50 MG TAB PO SCH (08:19)
[2023-09-25] MEDS: dilTIAZem HCL 240 MG CAPCR PO SCH (08:19)
[2023-09-25] MEDS: ESCITALOPRAM OXALATE 10 MG TAB PO SCH (08:19)
[2023-09-25] MEDS: PANTOprazole 40 MG TAB PO SCH (08:20)
--- NOTE | 2023-09-25 10:50 | Neurology Consultation ---
Date of Consultation September 25, 2023 Assessment & Plan (1) Occipital neuralgia: (2) Carmona's palsy: (3) Migraine: (4) Cervical radiculopathy: Plan Patient has a history of migraine headaches of a longstanding nature, much improved recently through exercise and lifestyle changes. He started having left-sided occipital/cervical junction neuralgic pain 2 to 3 weeks ago and had Carmona's palsy 2 weeks ago. In addition the patient had a syncopal episode 1 day last week while in [place] (which may have been orthostasis). Is a history of cervical radiculopathy. There are no radicular symptoms from the neck currently Recommendations: 1. MRI of the brain and cervical spine with and without contrast 2. Consider gabapentin 300 mg twice daily for neuralgic pain 3. Follow-up in neurology with neurology PA 2 to 3 weeks after discharge Overall, I spent a total of 75 minutes with this case including review of records, direct evaluation the patient, report generation, and discussion of the case with the patient and RN at bedside and DrMarilyn Support including differential diagnosis and treatment options. History of Present Illness Reason for Consultation: Patient is a 48-year-old, who was asked to see at the request of Nahun Membreno, for neurologic evaluation regarding head and neck pain Requesting Physician: Dr. Membreno Attending Physician: Rob Neri History of Present Illness The patient has a history of migraine headaches stemming back into his 20s. Years ago they were very frequent as much is 2 times a week. More recently, they are much less frequent particularly since he has been paying attention to conditioning and exercising. He has had only 2 significant headaches in the last year. Sumatriptan as needed helps. Typical headache would be bioccipital pain radiating to bifrontal pain sometimes accompanied with photophobia and nausea. The patient has a history of C5-C6 disc issues in the past and occasionally has neck pain Patient has a history of hypertension on diltiazem. 2 to 3 weeks ago patient noted some left occipitocervical junction stabbing pain of an intense nature. It would wax and wane. It was a very pointed pain in 1 spot. This was intermittent ever since. About 2 weeks ago he had left-sided facial weakness and was diagnosed with a left Carmona's palsy. He was given 1 week of steroids and he mildly improved. About a week ago he went to [place] to vacation. He did not sleep well and had significant pain. Once in the morning in the shower he blacked out falling and hitting the right side of his head. He had loss of consciousness for perhaps a few seconds only and has not had any residual from this. Patient came to the emergency room September 23 at 0908 with a temperature of 36.8, pulse 108, respiratory 20, blood pressure 146/66, and O2 saturation 100%. He had a severe left occipital cervical junction sharp jolting stabbing pain which was very frequent coming and going. He is awake and alert with normal speech and mentation. Limb function is normal with no weakness, numbness, or pain. CBC showed an elevated white count on admission (today was quite normal). CHEM profile, TSH and Lyme antibody titers were negative. CT scan of the head was unremarkable and CT angiography of the head and neck were normal as well. He is up walking in the halls this morning and is pain is down from a 9 or 10 out of 10 to a 4 or 5 out of 10 and sharp stabbing pains are less frequent. His Carmona's palsy is improved and he is no longer leaking/dribbling liquids out of his mouth. Allergies Allergy/AdvReac Type Severity Reaction Status Date / Time prochlorperazine AdvReac Severe ANXIETY Verified 09/24/23 08:14 Home Medications Medication Instructions Recorded Confirmed Type sumatriptan succinate 100 mg 100 mg PO Q2H PRN migraine 12/28/22 09/24/23 Rx tablet (Imitrex) headache #10 tabs omeprazole 20 mg capsule,delayed 20 mg PO DAILY 02/26/23 09/24/23 History release valacyclovir 500 mg tablet 500 mg PO DAILY PRN history of 09/14/23 09/24/23 Rx herpes genitalis #30 tabs telmisartan 80 mg tablet 80 mg PO DAILY #30 tabs 09/17/23 09/24/23 Rx cyclobenzaprine 10 mg tablet 10 mg PO HS PRN neck pain 09/24/23 09/24/23 History diltiazem HCl 240 mg 240 mg PO DAILY 09/24/23 09/24/23 History capsule,extended release 24 hr, controlled escitalopram oxalate 10 mg tablet 15 mg PO DAILY 09/24/23 09/24/23 History nystatin 100,000 unit/gram topical 1 applic topical BID PRN Other 09/24/23 09/24/23 History cream Patient History Medical History History of hepatitis A ~20 yrs ago History of COVID-19 2020- no hosp; resolved Sleep apnea no device Surgical History Hx of sinus surgery septal deviation S/P inguinal hernia repair S/P LASIK surgery Family History Family/Other Anxiety Depression Father Hypertension Cancer Denies family history of Ovarian cancer Prostate cancer Myocardial infarction Breast cancer Lung cancer Colorectal cancer Social History Smoking Status: Former smoker Tobacco Type: Cigarettes Age Quit Using Tobacco: 38; Second Hand Exposure: No; Do You Dip or Chew Tobacco: No; Hx Alcohol Use: Yes Alcohol type: beer and hard liquor Alcohol Intake Frequency Comment: On weekends Hx Substance Use: No Preferred Language: Bur[place]ian Communication Ability: Effective Visual Impairment: No Limitations Hearing Ability: Normal 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 Beliefs That Will Affect Care: None marital status: Current Living Situation: Spouse current occupational status: employed current occupation: law enforcement How many Children do You have: 3 Feels Safe at Home: Yes during the past year weight has: remained stable Seatbelt Use: always Assistive Devices: None Review of Systems Constitutional: no fever, no fatigue and no weakness Eyes: no diplopia, no eye pain and no worsening vision Ear, Nose, Mouth, Throat: no ear pain, no tinnitus, no hearing loss, no dizziness, no snoring, no hoarseness and no dysphagia Respiratory: no cough and no dyspnea Cardiovascular: no chest pain, no palpitations and no lightheadedness Gastrointestinal: no abdominal pain, no nausea and no vomiting Musculoskeletal: + neck pain; no back pain, no radicular pain, no joint pain and no myalgia Integumentary: no rash and no lesions Neurologic: + localized weakness and + headache(s); no gait abnormality, no generalized weakness, no tingling, no numbness, no tremor(s), no abnormal movements, no abnormal speech, no confusion and no memory loss Psychiatric: no depression, no irritability, no anxiety, no difficulty concentrating, no confusion and no hallucinations Endocrine: no fatigue and no flushing Hematologic / Lymphatic: no easy bleeding and no easy bruising Allergy / Immunological: no urticaria and no problem reported Exam (Neuro) Physical Exam: The patient is right-handed. The patient is awake, alert, and attentive. Speech is normal without any aphasia or dysarthria. Mentation and thought processes are intact, with full orientation and normal fund of knowledge. Mood and affect are normal and appropriate. Appearance and grooming are normal. Short and long-term memory are intact. Pupils are 4 mm bilaterally and reactive to light. Extraocular eye muscles are intact without nystagmus. Visual acuity and visual vincent seem normal grossly to confrontation. There are no deficits to sensation in the face in all 3 distributions of the fifth cranial nerve bilaterally. Corneal reflexes are positive bilaterally. The patient has mild weakness in the complete left half of his face with weakness in wrinkling his forehead, closing his eye, and moving the corner of his mouth. With voluntary smile he does not move the corner very much. He has no synkinesis. Hearing seems intact grossly to voice and finger rub bilaterally. Palate moves well without asymmetry. There is normal sternocleidomastoid and trapezius strength bilaterally. Tongue is midline with good strength bilaterally. Neck has a full range of motion without discomfort. There are no cervical bruits bilaterally. There are no cranial or ocular bruits. Heart is without murmur. There is a regular rhythm and rate. Cervical, thoracic, and lumbar spine are nontender to palpation. Gait is narrow based, with good arm swing, turns, and stance. With outstretched arms there is no drift. There are no resting, postural, or action tremors. There is no ataxia with finger to nose testing. There is good facility in the hands. No other abnormal involuntary movements are noted. Motor strength is 5/5 diffusely in the arms bilaterally including deltoids, biceps, triceps, brachioradialis, wrist flexors and extensors, feed house supervisor, and intrinsic hand muscles. Motor strength is 5/5 diffusely in the legs bilaterally including hip flexors, quadriceps, hamstrings, gastrocnemius, tibialis anterior, tibialis posterior, and Peroneii muscles bilaterally. Toe extensors are normal and there is good bulk in the extensor digitorum brevis muscles bilaterally. The limbs have good tone without rigidity or spasticity. There is no atrophy noted in the muscles. Muscle bulk is normal, there is no tenderness to palpation, no myotonia to percussion, and no fasciculations seen. Sensory examination is intact to touch and pin throughout all 4 limbs diffusely. Reflexes are 2/4 in the biceps, triceps, brachioradialis, quadriceps, and Achilles tendons bilaterally. Toes are downgoing with plantar stimulation bilaterally. Peripheral pulses are present and of normal quality distally in all 4 limbs. There is no peripheral edema noted in the limbs. Results & Data Vital Signs (Past 12 Hours) Vital Signs Temp Pulse Pulse Resp BP Pulse Ox O2 Del Method 09/25/23 07:20 37.2 C 90 16 150/78 H 95 Room Air 09/25/23 00:40 37.2 C 92 H 18 147/90 H 97 Room Air 09/24/23 23:17 93 H 18 134/77 97 Room Air PG Care Time/CCT Total # of Minutes Spent Total Time Spent with Patient: Total time spent is greater than 50% in coordination of care (as documented) at patient's floor/unit and/or counseling patient: Coding Level of Care Code 32543 INT INP/OBS CARE 3/75MIN Diagnoses Occipital neuralgia M54.81 Carmona's palsy G51.0 Migraine G43.909 Cervical radiculopathy M54.12 Time Spent (min) 75
[2023-09-25] MEDS: GABAPENTIN 100 MG CAP PO ONE (11:05)
[2023-09-25] MEDS: LORazepam 1 MG in SYRINGE 0.5 ML IV PRN (11:55)
[2023-09-25] MEDS: GADOBUTROL 65ML VIAL IV ONE (13:25)
--- NOTE | 2023-09-25 14:30 | Magnetic Resonance Report ---
MRI OF THE BRAIN COMBO CLINICAL HISTORY: Headache. Occipital neuralgia. COMPARISON STUDY: CT of the brain dated 09/24/2023. MRI of the brain dated 04/24/2011. TECHNIQUE: MRI of the brain was performed utilizing various T1 and T2-weighted sequences in the axial , sagittal, and coronal planes. Contrast-enhanced sequences were acquired following the administratio n of 10 cc of Gadavist. FINDINGS: Brain parenchyma: A chronic lacunar infarct is noted in the right cerebellar hemisphere. A developmen karine venous anomaly is noted in the right cerebellum. There is no hemorrhage or mass effect. There is no restricted diffusion to suggest acute ischemia. No enhancing mass lesion is identified on the post contrast images. Ramon-white matter differentiation is preserved. No extra-axial fluid collection is s een. The cerebellar tonsils are normal in configuration. Ventricles, sulci, and cisterns: Normal in configuration. Pituitary and sella: Unremarkable. Intracranial vasculature: Normal flow voids are maintained at the skull base. Orbits: The bony orbits are grossly intact. Orbital contents are normal in appearance. Sinuses and mastoids: There is mild mucosal thickening and a 16 mm retention cyst in the right maxill deepak antrum. Trace mucosal thickening is noted in the ethmoid sinuses. The mastoid air cells are clear . Calvarium: Unremarkable. Cervical cord: Partially visualized cervical spinal cord is normal in morphology and signal intensity . IMPRESSION: No acute intracranial abnormality. ACT 112: Negative or not required by law. Electronically signed by: Juan Antonio Nicolas M.D. 09/25/2023 2:28 PM
--- NOTE | 2023-09-25 14:31 | Magnetic Resonance Report ---
CERVICAL SPINE MRI WITH AND WITHOUT CONTRAST HISTORY: headache/ occipital neuralgia TECHNIQUE: Multiplanar multisequence MRI of the cervical spine was performed both before and after th e use of intravenous contrast. COMPARISON STUDY: Cervical spine MRI 01/26/2011 FINDINGS: Mild motion artifact. No fracture or subluxation within the cervical spine. Prevertebral so ft tissues and the C1-C2 interval are intact. The cervical spinal cord demonstrates a normal signal i ntensity. Postcontrast sequences show no areas of abnormal enhancement. Mild facet degenerative yepez es throughout the cervical spine. There is an old small lacunar infarct within the right cerebellar h emisphere. There is also a small right cerebellar developmental venous anomaly. This is considered to be a normal variant. Moderate disc space narrowing at C5-C6. There are associated endplate osteophyt es at this location. The remaining disc spaces are preserved for age. C2-C3: No significant central canal or right-sided neural foraminal narrowing. There is moderate left -sided neural foraminal narrowing due to the uncovertebral and facet hypertrophy. C3-C4: Small broad-based posterior disc osteophyte complex without significant central canal or right -sided neural foraminal narrowing. There is mild left-sided neural foraminal narrowing due to the unc overtebral and facet hypertrophy. C4-C5: Small broad-based posterior disc bulge with a tiny focal central disc protrusion measuring 2 m m. No significant central canal or right-sided neural foraminal narrowing. There is moderate left-shay ed neural foraminal narrowing due to the uncovertebral and facet hypertrophy. C5-C6: Broad-based posterior disc osteophyte complex which abuts and slightly deforms the anterior co rd resulting in mild central canal narrowing with an AP diameter of 8 mm. There is also severe bilate ral neural foraminal narrowing due to the uncovertebral and facet hypertrophy. C6-C7: No significant central canal or neural foraminal narrowing. C7-T1: No significant central canal or neural foraminal narrowing. IMPRESSION: 1. No fracture or subluxation within the cervical spine. 2. Degenerative changes as described above most pronounced at the C5-C6 level which demonstrates mild central canal narrowing and severe bilateral neural foraminal narrowing. ACT 112: Negative or not required by law. Electronically signed by: Renny Wyatt M.D. 09/25/2023 2:29 PM
[2023-09-25] MEDS: SUMAtriptan succinate 100 MG TAB PO PRN (14:34)
--- NOTE | 2023-09-25 16:57 | Discharge Summary ---
Date of Service September 25, 2023 Admission HPI Per Admitting Provider This is a 48-year-old male presents emerged from due to concern for worsening left posterior headache. Patient was seen, evaluated here 2 weeks ago, diagnosed with Carmona's palsy, received 7-day course of methylprednisolone. He states no labs or imaging were performed at that time. He's had mild improvement of the left-sided facial droop since finishing steroid course. He states he also went to [place], got back September 21, had a few episodes of diarrhea this morning, starting at 3 am, w/o blood. He states 1 week ago he had a syncopal event at home in the bathroom. He states prior to the onset of the left facial droop and diagnosis of Carmona's he had began having atypical left- sided headaches, consisting of dull-sided left pain with intermittent sharp stabbing pain at most every 45 sec. Patient does have a history of migraines which she describes as a pain that starts in the neck and comes up over then to his forehead. He states he does typically use OTC meds, has sumatriptan for refractory symptoms, but has not used it for months; states some gym exercises have decreased migraine frequency. He states this pain feels different as sharp, lancinating, and he is difficulty finding a comfortable position, and has disrupted his sleep additionally. He denies fevers or chills. He denies any extremity weakness or paresthesias. He has noticed light sensitivity and noise sensitivity but no vision changes--i.e. no blurriness, double vision. Patient has felt nauseous but has not vomited. Principal Diagnosis occipital neuralgia Discharge Exam Constitutional: WD/WN, vitals as above Respiratory: normal respiratory effort, lungs clear to auscultation Cardiovascular: RRR, no murmur, no edema Gastrointestinal (Abdomen): normal bowel sounds, soft, nontender, no hepatosplenomegaly Neurologic: moves all extremities Psychiatric: A+Ox3, euthymic affect Discharge Data Allergies Allergy/AdvReac Type Severity Reaction Status Date / Time prochlorperazine AdvReac Severe ANXIETY Verified 09/24/23 08:14 Consultations 09/24/23 20:18 Consult Neurology Routine Ordered Studies 09/24/23 09:43 CT angio head w con Stat CT angio neck with con Stat CT head/brain wo con Stat 09/25/23 10:28 MR brain wo/w con Urgent MR cervical spine wo/w con Urgent Hospital Course (1) Carmona's palsy: (2) Occipital neuralgia: (3) Degeneration of cervical intervertebral disc: (4) HTN (hypertension): (5) Cervical radiculopathy: (6) Diarrhea: (7) Migraine: Plan Patient is a 48-year-old male w/ PMHx of migraines, cervical radiculopathy/degeneration of cerv intervertebral disc, recent Carmona's palsy Dx (still resolving), new onset mild diarrhea, HTN, acid reflux, genital herpes, who presented due to concern for worsening left posterior headache of 2-wk Hx (2 days prior to Carmona's palsy Dx). 1) Left occipital neuralgia - 2 wk history, worsening symptoms APPREICATE INPUT FROM NEUROLOGY: Patient has a history of migraine headaches of a longstanding nature, much improved recently through exercise and lifestyle changes. He started having left-sided occipital/cervical junction neuralgic pain 2 to 3 weeks ago and had Carmona's palsy 2 weeks ago. In addition the patient had a syncopal episode 1 day last week while in [place] (which may have been orthostasis). Is a history of cervical radiculopathy. There are no radicular symptoms from the neck currently Recommendations: 1. MRI of the brain and cervical spine with and without contrast: NEGATIVE ASIDE FROM LESIONS TO c5c6 2. gabapentin 300 mg twice daily for neuralgic pain 3. Follow-up in neurology with neurology PA 2 to 3 weeks after discharge may recommend followup with pain clinic for occipital neuralgia. 2) Migraine/Hx of migraines - Hx of migraines --> no prophylaxis, sumatriptan for breakthrough migraines; sumatriptan - given Toradol, magnesium sulfate, valproic acid, Zofran in ED 3) Carmona's palsy, resolving - Dx of Carmona's palsy during last ED admission (09/11/23), prednisone, 60 mg, PO, daily, 7-day course - residual left ptosis, left facial droop, left facial muscle involvement - Lyme panel negative 4) Cervical radiculopathy/degeneration of cervical intervertebral disc - CT-Head: Partially visualized small retention cyst within the right maxillary sinus. There is no mass, hematoma, midline shift, or acute infarct--no signs of acute abnormality. 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 - CTA-head, neck: Unremarkable CT-Head. The imaged cervical spine appears intact. There is marked disc space narrowing, endplate sclerosis, and a "posterior discussed by complex" at C5-C6. will have patient followup with Ortho as an outpatient. 5) Diarrhea - mild, onset the day of admission; and second couple who traveled also w/ diarrhea ; all traveled to , returned on September 21 6) Leukocytosis - WBC, 19.8 (0.4% immature granulocytes) in context of recent 7 day course of prednisone - temp, 37.9 after Toradol and Tylenol --> potential fever? (holding Tylenol now) - met SIRS criteria: HR, 111; WBC, 19.8 --> blood cultures ordered due to diarrheal symptoms + SIRS criteria - no respiratory, urinary, cardiac Sx; no wounds; only 0.4% immature granulocytes argues against infectious cause -resolved. 6) HTN - continue telmisartan, diltiazem Total Time Total Time Spent Total Time Spent (In Minutes): 32 Discharge Plan Discharge Items Patient Disposition: Home - Self-Care Reason For Visit: OCCIPITAL HEADACHE Discharge Diagnosis: occipital headache Condition on Discharge: Good Activity: Resume your previous activity Non-emergency contact: Primary Care Provider Call non-emergency contact if: you have any medication questions Follow-up/Referrals: ProTien MD [Primary Care Provider] - Diet: Regular Addtl Attending Provider Instructions: Recommend followup with PCP in 1-2 weeks. You will be placed on gabapentin 300 mg twice daily for neuralgic pain. Follow-up in neurology with neurology PA 2 to 3 weeks after discharge. We will also recommend a followup with the pain clinic for occipital neuralgia. Will also recommend followup with Dr. Freeman for C5-C^ arthropathy. Gabapentinmay cause vision changes, clumsiness, unsteadiness, dizziness, drowsiness, sleepiness, or trouble with thinking. Make sure you know how you react to this medicine before you drive, use machines, or do anything else that could be dangerous if you are not alert, well-coordinated, or able to think or see well. Pending Studies at Discharge: No Stand-Alone Forms: My [employer], Smoking Cessation Medications and DC Order Prescriptions: New gabapentin 300 mg Capsule 300 mg PO BID Qty: 60 0RF Continued valacyclovir 500 mg tablet 500 mg PO DAILY PRN (Reason: history of herpes genitalis) Qty: 30 0RF telmisartan 80 mg tablet 80 mg PO DAILY Qty: 30 6RF sumatriptan succinate [Imitrex] 100 mg tablet 100 mg PO Q2H PRN (Reason: migraine headache) Qty: 10 2RF omeprazole 20 mg Capsule,Delayed Release(Dr/Ec) 20 mg PO DAILY cyclobenzaprine 10 mg tablet 10 mg PO HS PRN (Reason: neck pain) Rx Instructions: take 1 tablet at bedtime as needed for neck pain. diltiazem HCl 240 mg capsule,ext.rel 24h degradable 240 mg PO DAILY Rx Instructions: take 1 capsule orally daily escitalopram oxalate 10 mg tablet 15 mg PO DAILY Rx Instructions: take 1 and 1/2 tablets (15 mg) by mouth daily nystatin 100,000 unit/gram cream 1 applic TOP BID PRN (Reason: Other) Discharge Orders: Discharge Order (Routine); Ordered 09/25/23 Ordered By: Rob Neri Admission Data Admit Date/Time: 09/24/23 20:58 Attending Provider: Rob Neri Admit Provider: Nahun Membreno Primary Care Provider: Tien Wheeler Other Providers: Cassius Valdivia; Nahun Membreno Other Interventions: Discharge Summary Assessment (RN) Last Done: 09/25/23 16:59 Coding Level of Care Code 66970 INP/OBS DISCH >30 MIN Diagnoses Carmona's palsy G51.0 Occipital neuralgia M54.81 Degeneration of cervical intervertebral disc M50.30 HTN (hypertension) I10 Cervical radiculopathy M54.12 Diarrhea R19.7 Migraine G43.909
[2023-09-25] MEDS ORDERED: GABAPENTIN 300 MG CAP PO SCH (21:00)
[2023-09-28 10:08] LABS: Babesia microti DNA Not Detected (Not Detected)
[2023-09-28 15:09] LABS: Ehrlichia chaff DNA Bld Negative (Negative)
== END 2023-09-25 17:17 | disposition home or self-care (01) | DRG 552 ==
LOC: ED 09:08 → SUATTDRO 20:58 → EDINP 20:58 → 3W 23:24